=== PATIENT | female | born 1965 | race Caucasian/White ===

== ENCOUNTER 2018-04-09 10:18 | Day surgery (SDC) | payer BC ==
[2018-04-08 13:20] VITALS: BMI 25.0
[2018-04-09] MEDS ORDERED: Lactated Ringer's 1,000 ML IV ONE (12:35)
[2018-04-09] MEDS ORDERED: Midazolam 2 MG/2 ML VIAL ONE (12:40)
[2018-04-09] MEDS ORDERED: Propofol 10 mg/ml Inj (20 ML) ONE (12:40)
[2018-04-09 13:21] VITALS: TEMP 97.8
[2018-04-09 13:45] VITALS: O2SAT 100
[2018-04-09 14:22] VITALS: BP 148/88; PULSE 88; RESP 18
== END 2018-04-09 14:15 | disposition home or self-care (01) ==
LOC: C.ENDO 10:18
PROVIDERS: ATTEND Internal Medicine Gastroenterology
DX: Z12.11 Encounter for screening for malignant neoplasm of colon (principal); D12.4 Benign neoplasm of descending colon; K64.1 Second degree hemorrhoids; K64.8 Other hemorrhoids; K63.3 Ulcer of intestine; M81.0 Age-related osteoporosis without current pathological fracture
CPT/HCPCS: 45385; 88305; J2001; J2250; J2704; J7120

== ENCOUNTER 2018-05-08 10:31 | Outpatient (CLI) | payer BC | END 2018-05-08 10:32 | disposition home or self-care (01) | LOC: C.USIC 10:31 | DX: R10.2 Pelvic and perineal pain (principal) ==

== ENCOUNTER 2018-06-03 10:07 | Outpatient (CLI) | payer BC | END 2018-06-03 10:08 | disposition home or self-care (01) | LOC: C.MAMMO 10:07 | DX: N64.4 Mastodynia (principal) ==